=== PATIENT | male | born 1955 | race Caucasian/White ===

== ENCOUNTER 2020-05-16 04:54 | Inpatient (IN) | payer OTHER | END 2020-06-07 18:20 | DRG 246 | LOC: M.CL 04:54 → M.TBA-CV 09:18 → M.ICU 09:39 → M.2W 06-01 21:48 | PROVIDERS: ADMIT Internal Medicine | PROC: 027034Z Dilation of Coronary Artery, One Artery with Drug-eluting Intraluminal Device, Percutaneous Approach (ICD-10-PCS; principal; 2020-05-16) | PROC: 4A023N7 Measurement of Cardiac Sampling and Pressure, Left Heart, Percutaneous Approach (ICD-10-PCS; principal; 2020-05-16) | PROC: B211YZZ Fluoroscopy of Multiple Coronary Arteries using Other Contrast (ICD-10-PCS; 2020-05-16) | PROC: 5A1955Z Respiratory Ventilation, Greater than 96 Consecutive Hours (ICD-10-PCS; 2020-05-16) | PROC: 0BH17EZ Insertion of Endotracheal Airway into Trachea, Via Natural or Artificial Opening (ICD-10-PCS; 2020-05-16) | PROC: B548ZZA Ultrasonography of Superior Vena Cava, Guidance (ICD-10-PCS; 2020-05-17) | PROC: 02HV33Z Insertion of Infusion Device into Superior Vena Cava, Percutaneous Approach (ICD-10-PCS; 2020-05-17) | PROC: 5A12012 Performance of Cardiac Output, Single, Manual (ICD-10-PCS; 2020-05-26) | PROC: 5A09357 Assistance with Respiratory Ventilation, Less than 24 Consecutive Hours, Continuous Positive Airway Pressure (ICD-10-PCS; 2020-05-29) | PROC: 5A09357 Assistance with Respiratory Ventilation, Less than 24 Consecutive Hours, Continuous Positive Airway Pressure (ICD-10-PCS; 2020-06-03) | DX: I21.3 ST elevation (STEMI) myocardial infarction of unspecified site (principal); J69.0 Pneumonitis due to inhalation of food and vomit; E43 Unspecified severe protein-calorie malnutrition; I50.43 Acute on chronic combined systolic (congestive) and diastolic (congestive) heart failure; J96.01 Acute respiratory failure with hypoxia; I46.9 Cardiac arrest, cause unspecified; N17.9 Acute kidney failure, unspecified; R65.10 Systemic inflammatory response syndrome (SIRS) of non-infectious origin without acute organ dysfunction; I13.0 Hypertensive heart and chronic kidney disease with heart failure and stage 1 through stage 4 chronic kidney disease, or unspecified chronic kidney disease; E87.2 Acidosis; K56.7 Ileus, unspecified; I48.92 Unspecified atrial flutter; I47.2 Ventricular tachycardia; G93.40 Encephalopathy, unspecified; I25.110 Atherosclerotic heart disease of native coronary artery with unstable angina pectoris; D64.9 Anemia, unspecified; E78.5 Hyperlipidemia, unspecified; E11.22 Type 2 diabetes mellitus with diabetic chronic kidney disease; N18.3 Chronic kidney disease, stage 3 (moderate); E66.9 Obesity, unspecified; M10.9 Gout, unspecified; R33.9 Retention of urine, unspecified; E87.6 Hypokalemia; I25.5 Ischemic cardiomyopathy; E11.65 Type 2 diabetes mellitus with hyperglycemia; Z20.828 Contact with and (suspected) exposure to other viral communicable diseases; Z68.32 Body mass index [BMI] 32.0-32.9, adult; Z79.899 Other long term (current) drug therapy ==

== ENCOUNTER 2020-06-07 17:18 | Inpatient (IN) | payer OTHER ==
[~2020-06-07] VITALS: Ht 180.3 cm; Wt 98.2 kg
[~2020-06-07 17:18] MED LIST: ALLOPURINOL 10100 M3 PO; ASPIR 8181 MG PO; CARVEDILOL3.125 MG PO; EFFIENT10 MG PO; ENTRESTO 24 MG1 EACH PO; FLOMAX0.4 MG PO; IPRAT-ALBUT 0.5-3 ML INH; LASIX 40 MG TAB40 M1 PO; LIPITOR 40 MG T40 M1 PO; LISINOPRIL2.5 MG PO; NORVASC 2.5 MG2.5 M1 PO; PREDNISONE 20 M20 MG PO; PROBENECID500 MG PO; SEROQUEL 50 MG50 MG PO; SIMVASTATIN40 MG PO; SPIRONOLACTONE25 MG PO; TOPROL XL100 MG PO
[2020-06-07 19:00] VITALS: BP 110/73
--- NOTE | 2020-06-08 00:06 | NUR ---
ASSUMED CARE AT 1930. ADMITTED TO ROOM 328 AT 1820. ASSESSMENT COMPLETE. MCKAY DRAINING ILA URINE. RT GROIN BRUISED FROM CARDIAC CATH, BUT IS RESOLVING. TURNS SELF WELL. NO C/O PAIN. TAKES PILLS A FEW AT A TIME WITH WATER WITHOUT DIFF. PICC LINE TO STEPHON, ALL PORTS FLUSH WELL, ONLY PURPLE ONE HAS BLOOD RETURN AT THIS TIME. REHAB ROUTINE EXPLAINED TO PATIENT. BED ALARM ON. CALL LITE IN REACH. HOURLY ROUNDS CONTINUE.
[2020-06-08 04:29] LABS: HEMATOCRIT 36.7 % (42.0-52.0); HEMOGLOBIN 12.5 gm/dL (14.0-18.0); MCH 31.7 pg (26.0-34.0); MCHC 34.1 g/dL (28.0-37.0); MPV 8.7 fl. (7.2-11.1); RBC 3.94 mil/uL (4.50-6.00); WBC 7.3 thou/uL (4.0-11.0)
[2020-06-08 04:35] LABS: CALCIUM 7.9 mg/dL (8.5-10.1); CREATININE 1.2 mg/dL (0.6-1.3); POTASSIUM 3.7 mmol/L (3.5-5.1)
--- NOTE | 2020-06-08 05:11 | NUR ---
RESTED IN BED THROUGH THE NIGHT. MCKAY DRAINING ILA URINE. R.T. PUT O2 2L/NC ON AT HS. TURNS SELF. LABS DRAWN PER PICC. NO C/O PAIN. BED ALARM ON. CALL LITE IN REACH. HOURLY ROUNDS CONTINUE.
[2020-06-08 08:00] VITALS: BP 114/71
--- NOTE | 2020-06-08 12:32 | NUR ---
Nutrition: Pt admitted to rehab with cardiac debility. Wt: 211#. Albumin 2.1 Physician indicated severe PCM - defer DX. Prealbumin 22.5, BG 117. Pt is eating, per RN. Chopped, heart healthy diet. Meds noted. H/o CAD, DM, gout, HTN. No nutrition interventions needed today. Low risk.
--- NOTE | 2020-06-08 16:55 | NUR ---
Pt known to SW from acute care stay. Pt now on inpt rehab unit. Pt lives at home alone. Pt has sisters who are supportive but are not able to live with pt or provide any assistance at home at dc. SW to continue to follow to assist with safe dc planning.
--- NOTE | 2020-06-08 17:20 | NUR ---
AM ASSESSMENT AND VITAL SIGNS COMPLETED DOCUMENTED. PT WORKED WITH ALL THERAPIES, C/O FATIGUE AFTER MORNING SESSIONS WERE DONE. PT DENIED PAIN THIS SHIFT. O2 SAT MONITORED DURING THERAPY AND PT PT MAINTAINED A SATURATION OF 93-95% SO O2 IS NOW ON STANDBY. FC TO DD WITH STRAW COLORED URINE OUTPUT. PT HAD A BM TODAY AND WAS ABLE TO DO ROCÍO CARE AND MANAGE CLOTHING WITH MIN ASSIST. FALL PRECAUTIONS AND HOURLY ROUNDING CONTINUE.
[2020-06-08 19:45] VITALS: BP 94/53
--- NOTE | 2020-06-08 19:45 | NUR ---
SITTING UP IN RECLINER WATCHING TV. COMPLAINS OF GENERALIZED DISCOMFORT FROM SITTING. TYLENOL GIVEN FOR PAIN. ASSISTED TO BED WITH ASSIST OF TWO, GAITBELT, WALKER. PATIENT NEEDED SOME LIFTING ASSISTANCE TO GET FROM THE SITTING TO STANDING POSITION. THEN WAS ABLE TO TAKE A FEW STEPS TO THE BED WITH CGA AND WALKER. MCKAY TO DEPENDENT DRAINAGE WITH CLEAR/YELLOW URINE. TOOK MEDICATIONS WHOLE WITH WATER. CALL LIGHT WITHIN REACH.
--- NOTE | 2020-06-09 06:09 | NUR ---
RESTED QUIETLY. NO FURTHER COMPLAINT OF PAIN. HOURLY ROUNDING IN PROGRESS.
[2020-06-09 08:00] VITALS: BP 112/72
--- NOTE | 2020-06-09 16:49 | NUR ---
AM ASSESSMENT AND VITAL SIGNS COMPLETED DOCUMENTED. PT HAS BEEN ALERT, ORIENTED AND PLEASANT. PT IS VERY MOTIVATED TO REGAIN HIS BASELINE STRENGTH AND WORKS HARD DURING ALL THERAPIES. NO C/O PAIN THIS SHIFT. FC TO DD WITH CLEAR YELLOW URINE OUTPUT. NO C/O PAIN OR DISCOMFORT THIS SHIFT. FALL PRECAUTIONS AND HOURLY ROUNDING CONTINUE.
[2020-06-09 19:41] VITALS: BP 99/64
--- NOTE | 2020-06-10 06:07 | NUR ---
PT SLEPT WELL OVERNIGHT AFTER RECEIVING TYLENOL AT HS FOR GENERALIZED DISCOMFORT WITH GOOD RESULT. STEPHON PICC SL. MCKAY DRAINING YELLOW URINE. PT TURNS INDEP IN BED OVERNIGHT. UP WITH GB WALKER TO BSC, NO BM THIS SHIFT. NO LABS THIS MORNING. AOX4, ABLE TO USE CALL LITE AND MAKE NEEDS KNOWN. ROOM AIR. CALL LITE IN EASY REACH, BED ALARM ON FOR SAFETY OVERNIGHT.
[2020-06-10 08:00] VITALS: BP 108/71
[2020-06-10 11:50] VITALS: BP 94/63
[2020-06-10 11:55] VITALS: BP 85/60
[2020-06-10 12:00] VITALS: BP 80/55
[2020-06-10 12:10] VITALS: BP 94/54
--- NOTE | 2020-06-10 17:08 | NUR ---
MAILE and Dr Hernandez met with pt yesterday to review team conference summary and plan for pt to remain on inpt rehab unit with team to reassess pt length of stay during team conference on next Saturday 06/16. SW to continue to follow to assist with safe dc planning.
--- NOTE | 2020-06-10 17:10 | NUR ---
ASSUMMED CARE OF PT AT 0730, PT ALERT AND ORIENTED, TRANSFERS WITH ASSIST OF 1 GB WALKER, TAKING FOOD AND FLUIDS WELL, C/O BACK PAIN THIS AM, MEDICATED X 1 WITH GD RELIEF, STEPHON TRIPLE LUMEN INTACT, UP IN CHAIR MUCH OF SHIFT, AMB TO BATHROOM, PARTICIPATED IN ALL THERAPIES HOURLY ROUNDING COMPLETED, ASSESSMENT COMPLETE, WILL CONTINUE TO MONITOR.
[2020-06-10 20:00] VITALS: BP 113/71
[2020-06-11 06:00] VITALS: BP 120/74
--- NOTE | 2020-06-11 06:32 | NUR ---
PT ALERT AND ORIENTED. VSS ON RA. MEDS GIVEN PER EMAR. PT SLEPT WELL THIS SHIFT. PT DENIES PAIN. NO BM NOTED THIS SHIFT. FALL PRECAUTION IN PLACE. CALL LIGHT WITHIN REACH. HOURLY ROUNDINGS MADE. WILL CONTINUE TO MONITOR.
[2020-06-11 08:00] VITALS: BP 110/69
--- NOTE | 2020-06-11 15:47 | NUR ---
ASSUMMED CARE OF PT AT 0730, PT ALERT AND ORIENTED, PT TRANSFERS WITH SBA, GB WALKER, PT TAKING FOOD AND FLUIDS WELL, C/O BACK PAIN MEDICATED X1 WITH TYLENOL WITH GD RELIEF, MCKAY HAD 1200 CC OUT AND DISCONTINUED AT 1440, PT ENCOURAGED TO DRINK FLUIDS AND VOIDING TRIAL EXPLAINED TO PT, TRIPLE LUMEN PICC DISCONTINUED IN STEPHON, PT TAKING FOOD AND FLUIDS WELL, PARTICIPATED IN ALL THERAPIES, HOURLY ROUNDING COMPLETED, ASSESSMENT COMPLETE, WILL CONTINUE TO MONITOR.
[2020-06-11 20:13] VITALS: BP 96/57
--- NOTE | 2020-06-11 20:50 | NUR ---
SITTING UP IN BED WATCHING TV. DENIES NEED FOR PAIN MEDICATION. CALL LIGHT WITHIN REACH.
--- NOTE | 2020-06-12 06:43 | NUR ---
PATIENT SAT UP ON SIDE OF THE BED SEVERAL TIMES THROUGHOUT THE NIGHT AND VOIDED 275ML TO 350ML AT A TIME. BLADDER SCAN LAST NIGHT SHOWED A RESIDUAL OF ZERO. THIS MORNING BLADDER SCAN SHOWED A RESIDUAL OF 696ML. PATIENT DENIES BLADDER DISCOMFORT. HOURLY ROUNDING IN PROGRESS.
[2020-06-12 08:00] VITALS: BP 118/62
--- NOTE | 2020-06-12 18:41 | NUR ---
AM ASSESSMENT AND VITAL SIGNS COMPLETED DOCUMENTED. PT HAS BEEN PLEASANT AND COOPERATIVE, CONTINUES TO PROGRESS TOWARDS DISCHARGE GOALS. PT HAS BEEN ABLE TO URINATE BUT DOESN'T COMPLETELY EMPTY HIS BLADDER. PT DENIES FEELING BLADDER DISTENTION OR DISCOMFORT. FALL PRECAUTIONS AND HOURLY ROUNDING CONTINUE.
[2020-06-12 20:15] VITALS: BP 104/63
--- NOTE | 2020-06-12 20:15 | NUR ---
AWAKENED FOR REASSESSMENT AND MEDICATION PASS. DENIES DISCOMFORT. DENIES NEEDS. CALL LIGHT WITHIN REACH.
--- NOTE | 2020-06-13 05:57 | NUR ---
ONLY USED URINAL X ONE DURING THE NIGHT. VOIDED 400ML. BLADDER SCAN SHOWED A RESIDUAL OF 1058ML. STRAIGHT CATH WAS DONE AND 1050ML OF DARK/YELLOW URINE OBTAINED. HOURLY ROUNDING IN PROGRESS.
[2020-06-13 08:00] VITALS: BP 106/76
--- NOTE | 2020-06-13 18:11 | NUR ---
AM ASSESSMENT AND VITAL SIGNS COMPLETED DOCUMENTED. PT IS VOIDING 350-400ML EACH TIME TODAY. PT VERY PLEASANT AND COOPERATIVE. PT HASN'T NEEDED ANY PRN PAIN MEDICATIONS THIS SHIFT. PT ENCOURAGED TO USE THE IS FREQUENTLY. FALL PRECAUTIONS AND HOURLY ROUNDING CONTINUE.
[2020-06-13 20:25] VITALS: BP 101/65
--- NOTE | 2020-06-13 20:25 | NUR ---
AWAKENED FOR REASSESSMENT AND MEDICATION PASS. TYELNOL GIVEN FOR COMPLAINT OF BACK PAIN RATED "4". CALL LIGHT WITHIN REACH.
[2020-06-14 04:35] LABS: HEMATOCRIT 33.4 % (42.0-52.0); HEMOGLOBIN 11.3 gm/dL (14.0-18.0); MCH 31.8 pg (26.0-34.0); MCHC 33.9 g/dL (28.0-37.0); MCV 93.7 fL (80.0-100.0); NUCLEATED RBCS 0 /100WBC; PLATELET COUNT* 101 thou/uL (150-400); RBC 3.57 mil/uL (4.50-6.00); WBC 3.3 thou/uL (4.0-11.0)
[2020-06-14 04:44] LABS: CALCIUM 8.1 mg/dL (8.5-10.1); CREATININE 1.3 mg/dL (0.6-1.3); POTASSIUM 4.2 mmol/L (3.5-5.1)
--- NOTE | 2020-06-14 05:41 | NUR ---
NO FURTHER COMPLAINT OF PAIN. SAT UP ON SIDE OF THE BED X TWO DURING THE NIGHT TO VOID PER URINAL. 425 ML THE FIRST TIME AND 500ML THE SECOND TIME. HOURLY ROUNDING IN PROGRESS.
[2020-06-14 05:44] LABS: ABSOLUTE EOSINOPHILS 0.2 thou/uL (0.0-0.7); ABSOLUTE LYMPHOCYTES 1.7 thou/uL (0.8-5.3); ABSOLUTE MONOCYTES 0.3 thou/uL (0.0-1.2); ABSOLUTE NEUTROPHILS 1.2 thou/uL (1.6-8.1); PLATELET ESTIMATE DECREASED
[2020-06-14 05:45] LABS: ANISOCYTOSIS 1+; POIKILOCYTOSIS 1+
[2020-06-14 07:30] VITALS: BP 108/65
--- NOTE | 2020-06-14 14:36 | NUR ---
ASSUMED CARE AT 0730. ALERT ORIENTED PLEASANT COOPERATIVE. HX OF CARDIOPULMONARY ARREST AND CT. TRANSFERS WITH SBA G BELT WALKER AMBULATES TO TOILET FOR VOIDS AND BM THIS A.M. USING CALL LIGHT APPROPRIATELY FOR ASSISTANCE. FEEDS SELF APPETITE GOOD TAKES MEDS WITHOUT DIFFICULTY. PARTICIPATING IN THERAPIES THROUGHOUT THE DAY. UP IN RECLINER AT BEDSIDE WHEN NOT IN THERAPIES. MEDICATED WITH PRN TYLENOL FOR BACK PAIN WITH SOME RELIEF STATED PER PT.
[2020-06-14 19:50] VITALS: BP 107/64
[2020-06-15 08:04] VITALS: BP 113/77
[2020-06-15 14:26] VITALS: BP 95/63
--- NOTE | 2020-06-15 14:39 | NUR ---
ASSUMED CARE AT 0730. ALERT ORIENTED PLEASANT COOPERATIVE. HX OF TX AND STENTS ALSO CARDIAC ARREST WITH HX OF CPR. TRANSFERS WITH SBA G BELT WALKER AND AMBULATES TO BR TO VOID AND HAS USED URINAL AT TIMES. MEDICATED WITH TYLENOL 2 TABS PO FOR C/O BACK PAIN RATES A 3 ON PAIN SCALE BEFORE THERAPY. PT. PARTICIPATING IN THERAPIES O.T. AFTERNOON SESSION STATED HAVING FELT FAINT AFTER SEVERAL EXERCISES WITH O.T. BP AT 1426 WAS 95/63 SITTING P 70 DENIES PAIN OR DISCOMFORT.
[2020-06-15 15:00] VITALS: BP 117/69
[2020-06-15 15:01] VITALS: BP 98/78
[2020-06-15 20:35] VITALS: BP 112/64
--- NOTE | 2020-06-15 20:35 | NUR ---
RESTING QUIETLY IN BED. TYLENOL GIVEN FOR COMPLAINT OF BACK PAIN RATED "5". SITS ON SIDE OF BED TO VOID PER URINAL. CALL LIGHT WIHIN REACH.
--- NOTE | 2020-06-16 04:57 | NUR ---
USED URINAL X 2 DURING THE NIGHT. HOURLY ROUNDING IN PROGRESS.
[2020-06-16 08:02] VITALS: BP 95/64
--- NOTE | 2020-06-16 14:00 | NUR ---
MAILE and Dr Hernandez met with pt to review team conference summary and plan for pt to trial mod I in room on and dc home on Sunday. Pt open to HH services at dc and in need of RW ordered at dc. SW to follow to discuss options with pt and arrange for pt dc Monday 06/18.
--- NOTE | 2020-06-16 16:19 | NUR ---
AM ASSESSMENT AND VITAL SIGNS COMPLETED DOCUMENTED. PT HAS WORKED WITH ALL THERAPIES TODAY AND CONTINUES TO PROGRESS. PT MAY BE MOD I IN HIS ROOM TOMORROW PENDING THERAPY NOTES FROM TODAY. PT IS AMBULATORY WITH A WALKER BUT FATIGUES QUICKLY AND WILL PROBABLY NEED CARDIAC REHAB AT DISCHARGE. FALL PRECAUTIONS AND HOURLY ROUNDING CONTINUE.
--- NOTE | 2020-06-16 16:29 | NUR ---
PT WILL BE FITTED FOR A LIFE VEST PRIOR TO DISCHARGE.
[2020-06-16 20:05] VITALS: BP 127/64
--- NOTE | 2020-06-16 20:05 | NUR ---
RESTING QUIETLY IN BED. DENIES DISCOMFORT. CALL LIGHT AND URINAL WITHIN REACH.
--- NOTE | 2020-06-17 06:19 | NUR ---
SAT UP ON SIDE OF THE BED X 2 DURING THE NIGHT TO VOID PER URINAL. HOURLY ROUNDING IN PROGRESS.
[2020-06-17 08:00] VITALS: BP 118/55
[2020-06-17 20:00] VITALS: BP 112/67
--- NOTE | 2020-06-18 06:30 | NUR ---
ASSUMED PT CARE AT 1930. HX OF STEMI WITH CARDIOGENIC STOCK S/P CODE BLUE PULSELESS V TACH. PT ALERT AND ORIENTED X4, POLITE AND COOPERATIVE WITH CARES. PT MOD I IN ROOM. UP TWICE TO BATHROOM TO VOID, USED URINAL ONCE. DENIED PAIN OR NEEDS. WEARING ANTHROPOLOGICAL LINGUIST. TO BE FITTED FOR LIFE VEST PRIOR TO DISCHARGE WHICH IS ANTICIPATED TODAY. USES CALL LIGHT APPROPRIATELY. CALL LIGHT IN REACH. HOURLY ROUNDING IN PROGRESS, WILL CONTINUE TO MONITOR.
[2020-06-18 09:00] VITALS: BP 95/62
[2020-06-18 13:37] VITALS: BP 95/62
[2020-06-18 14:50] VITALS: BP 95/62
--- NOTE | 2020-06-18 14:52 | NUR ---
Pt to dc home alone today with HH services to follow. And with Rolling walker. SW discussed with pt; SW arranged with pt preferences through [facility] approved for rolling walker and with [facility]. ph [phone]
[2020-06-18] MEDS ORDERED: SPIRONOLACTONE25 MG PO (15:57)
[2020-06-18] MEDS ORDERED: NITROGLYCERIN0.4 MG SUBLING (16:00)
[2020-06-18] MEDS ORDERED: TOPROL XL25 MG PO (16:00)
--- NOTE | 2020-06-18 18:49 | NUR ---
PATIENT VERBALIZED UNDERSTANDING OF DISCHARGE INSTRUCTIONS. DENIES NEED FOR PAIN MEDICATION. UP ON OWN/MOD I IN ROOM. WEARING CARDIAC VEST WITHOUT ANY DIFFICULTY. PATIENT HAD BEEN INSTRUCTED ON CARDIAC VEST AND STATED NO NEW QUESTIONS. MEDICATIONS ORDERS FAXED TO PHARMACY OF CHOICE. CARDIODOGY SAW PATIENT PRIOR TO D/C AND NEW ORDERS NOTED. PATIENT INSTRUCTED TO CHECK B/P 2-3 TIMES A DAY UNTIL DR CASILLAS.
== END 2020-06-18 18:00 | disposition home health service (06) | DRG 947 ==
LOC: M.REH 17:18
PROVIDERS: Nurse Practitioner Family; ADMIT Physical Medicine & Rehabilitation; ATTEND Physical Medicine & Rehabilitation
PROC: 05HY33Z Insertion of Infusion Device into Upper Vein, Percutaneous Approach (ICD-10-PCS; principal; 2020-06-07)
DX: R53.81 Other malaise (principal); I21.3 ST elevation (STEMI) myocardial infarction of unspecified site; J69.0 Pneumonitis due to inhalation of food and vomit; E43 Unspecified severe protein-calorie malnutrition; I50.41 Acute combined systolic (congestive) and diastolic (congestive) heart failure; J96.01 Acute respiratory failure with hypoxia; I46.9 Cardiac arrest, cause unspecified; N17.9 Acute kidney failure, unspecified; R65.10 Systemic inflammatory response syndrome (SIRS) of non-infectious origin without acute organ dysfunction; I13.0 Hypertensive heart and chronic kidney disease with heart failure and stage 1 through stage 4 chronic kidney disease, or unspecified chronic kidney disease; K56.7 Ileus, unspecified; I47.2 Ventricular tachycardia; I48.92 Unspecified atrial flutter; I25.10 Atherosclerotic heart disease of native coronary artery without angina pectoris; E78.5 Hyperlipidemia, unspecified; E11.22 Type 2 diabetes mellitus with diabetic chronic kidney disease; M10.9 Gout, unspecified; E66.9 Obesity, unspecified; Z68.29 Body mass index [BMI] 29.0-29.9, adult; R33.9 Retention of urine, unspecified; Z82.49 Family history of ischemic heart disease and other diseases of the circulatory system; N18.3 Chronic kidney disease, stage 3 (moderate); Z79.82 Long term (current) use of aspirin; Z79.899 Other long term (current) drug therapy

== ENCOUNTER → 2020-08-09 | Outpatient (CLI) | payer OTHER ==
[~2020-08-09] MED LIST changes: +NITROGLYCERIN0.4 MG SUBLING; +TOPROL XL25 MG PO
[2020-08-09 08:25] LABS: ALBUMIN 3.5 g/dL (3.4-5.0); ALKALINE PHOSPHATASE 164 U/L (46-116); ANION GAP 11 mmol/L (7-16); BUN 13 mg/dL (7-18); CALCIUM 8.7 mg/dL (8.5-10.1); CHLORIDE 106 mmol/L (98-107); CHOLESTEROL 139 mg/dL (<200); CO2 25 mmol/L (21-32); CREATININE 1.3 mg/dL (0.6-1.3); GLUCOSE 108 mg/dL (70-99); HDL CHOLESTEROL 44 mg/dL (>40); LDL CHOLESTEROL 52 mg/dL (<100); MAGNESIUM 1.9 mg/dL (1.8-2.4); POTASSIUM 4.3 mmol/L (3.5-5.1); SGOT 24 U/L (15-37); SGPT 24 U/L (30-65); SODIUM 142 mmol/L (136-145); TC:HDL 3.2 Ratio (Not establshd); TOTAL BILIRUBIN 1.5 mg/dL (<0.1-1.0); TOTAL PROTEIN 6.3 g/dL (6.4-8.2); TRIGLYCERIDE 216 mg/dL (<150); VLDL 43 mg/dL (<40)
[2020-08-09 08:29] LABS: SERUM ASSESSMENT Clear
== END ==
LOC: M.LAB 06:56
PROVIDERS: ATTEND Nurse Practitioner
DX: E78.5 Hyperlipidemia, unspecified (principal); R00.2 Palpitations

== ENCOUNTER → 2020-09-20 | Outpatient (CLI) | payer OTHER ==
--- NOTE | 2020-09-20 12:35 | 2DMMODE ---
[place] [id number] 2 D/M-MODE ECHOCARDIOGRAM Name: CARLOS BRANCH Room: [facility]#: [id number] Admission: 09/20/20 Attend Phys: Yoel Davis, Discharge: Date of : 55 Date of Service: 09/20/20 1235 Report #: [id number] THIS REPORT FOR: cc: Keshav Calixto MD, Greg L. MD Blick, David R. MD [facility] ~ APPROVED REPORT Study performed: 09/20/2020 07:53:35 EXAM: Comprehensive 2D, Doppler, and color-flow Echocardiogram Patient Location: Out-Patient BSA: 2.23 HR: 60 bpm BP: 120/60 mmHg Other Information Study Quality: Good Indications Cardiomyopathy 2D Dimensions IVSd: 14.00 (7-11mm) LVOT Diam: 20.00 (18-24mm) LVDd: 53.63 mm PWd: 12.67 (7-11mm) Ascending Ao: 34.42 (22-36mm) LVDs: 44.41 (25-40mm) Aortic Root: 29.52 mm Volumes Left Atrial Volume (Systole) LA ESV Index: 16.80 mL/m2 Aortic Valve AoV Peak Donell.: 1.08 m/s AO Peak Gr.: 4.63 mmHg LVOT Max P.58 mmHg AO Mean Gr.: 2.30 mmHg LVOT Mean P.70 mmHg LVOT Max V: 0.95 m/s AO V2 VTI: 17.46 cm LVOT Mean V: 0.59 m/s LIS (VTI): 2.94 cm2 LVOT V1 VTI: 16.36 cm Mitral Valve E/A Ratio: 0.34 [place] [address] 2 D/M-MODE ECHOCARDIOGRAM Name: CARLOS BRANCH Room: [facility]#: [id number] Admission: 09/20/20 Attend Phys: Yoel Davis, Discharge: Date of : 55 Date of Service: 09/20/20 1235 Report #: [id number] MV Decel. Time: 333.58 ms MV E Max Donell.: 0.25 m/s MV PHT: 96.74 ms MVA (PHT): 2.27 cm2 TDI E/Lateral E': 4.17 E/Medial E': 3.57 Medial E' Donell.: 0.07 m/s Lateral E' Donell.: 0.06 m/s Pulmonary Valve PV Peak Donell.: 0.99 m/s PV Peak Gr.: 3.92 mmHg Left Ventricle Left ventricle is mildly dilated. akinesis noted of the mid and distal anteroseptal wall and apex Mild concentric left ventricular hypertrophy. Left ventricular systolic function is severely decreased. LVEF is 20-25%. Grade I - abnormal relaxation pattern. Right Ventricle The right ventricle is normal size. The right ventricular systolic function is normal. Atria The left atrium size is normal. The right atrium size is normal. Aortic Valve The Aortic valve is sclerotic. No aortic regurgitation is present. There is no aortic valvular stenosis. Mitral Valve The mitral valve is normal in structure. Mild mitral regurgitation. No evidence of mitral valve stenosis. Tricuspid Valve The tricuspid valve is normal in structure. There is trace tricuspid valve regurgitation noted. Pulmonic Valve The pulmonary valve is normal in structure. There is trace pulmonic valvular regurgitation. Great Vessels The aortic root is normal in size. IVC [place] [address] 2 D/M-MODE ECHOCARDIOGRAM Name: [facility]CARLOS [id number] Admission: 09/20/20 Attend Phys: Yoel Davis, Discharge: Date of : 55 Date of Service: 09/20/20 1235 Report #: [id number] collapses >50% with inspiration. Pericardium There is no pericardial effusion. <Conclusion> Mild concentric left ventricular hypertrophy. LVEF is 20-25%. Mild mitral regurgitation. The Aortic valve is sclerotic. <ELECTRONICALLY SIGNED> By: Arthur Mendiola MD, FACC 09/20/20 1235 1235 1235 Arthur Mendiola MD, FAC /INF
== END ==
LOC: M.CRD 07:32
PROVIDERS: ATTEND Internal Medicine Cardiovascular Disease
DX: I07.1 Rheumatic tricuspid insufficiency (principal); I25.10 Atherosclerotic heart disease of native coronary artery without angina pectoris; I25.5 Ischemic cardiomyopathy

== ENCOUNTER → 2020-12-07 | Outpatient (CLI) | payer OTHER ==
--- NOTE | 2020-12-07 14:05 | 2DMMODE ---
[place] [address] 2 D/M-MODE ECHOCARDIOGRAM Name: CARLOS BRANCH Room: [facility]#: [id number] Admission: 12/07/20 Attend Phys: Yoel Davis, Discharge: Date of : 55 Date of Service: 12/07/20 1405 Report #: [id number] THIS REPORT FOR: cc: Keshav Calixto MD, Greg L. MD Liston, Michael J. MD [facility] ~ APPROVED REPORT Study performed: 12/07/2020 08:53:28 EXAM: Comprehensive 2D, Doppler, and color-flow Echocardiogram Patient Location: Out-Patient BSA: 2.21 HR: 60 bpm BP: 120/80 mmHg Other Information Study Quality: Good Indications CAD Cardiomyopathy 2D Dimensions IVSd: 11.57 (7-11mm) LVOT Diam: 20.69 (18-24mm) LVDd: 32.58 mm PWd: 11.10 (7-11mm) Ascending Ao: 31.76 (22-36mm) LVDs: 28.60 (25-40mm) Aortic Root: 28.71 mm Volumes Left Atrial Volume (Systole) LA ESV Index: 16.20 mL/m2 Aortic Valve AoV Peak Donell.: 1.17 m/s AO Peak Gr.: 5.51 mmHg LVOT Max P.85 mmHg AO Mean Gr.: 3.38 mmHg LVOT Mean P.79 mmHg LVOT Max V: 0.98 m/s AO V2 VTI: 19.66 cm LVOT Mean V: 0.61 m/s LIS (VTI): 3.48 cm2 LVOT V1 VTI: 20.32 [place] [address] 2 D/M-MODE ECHOCARDIOGRAM Name: CARLOS BRANCH Room: [facility]#: [id number] Admission: 12/07/20 Attend Phys: Yoel Davis, Discharge: Date of : 55 Date of Service: 12/07/20 1405 Report #: [id number] E/A Ratio: 0.61 MV Decel. Time: 325.29 ms MV E Max Doenll.: 0.44 m/s MV PHT: 94.34 ms MVA (PHT): 2.33 cm2 TDI E/Lateral E': 4.89 E/Medial E': 7.33 Medial E' Donell.: 0.06 m/s Lateral E' Donell.: 0.09 m/s Pulmonary Valve PV Peak Donell.: 0.84 m/s PV Peak Gr.: 2.84 mmHg Tricuspid Valve RAP Estimate: 5.00 mmHg TR Peak Gr.: 18.93 mmHg RVSP: 23.93 mmHg PA Pressure: 23.93 mmHg Left Ventricle Left ventricle is mildly dilated. There is significant hypokinesis along the anterior apical and inferior caro. There is normal left ventricular wall thickness. Left ventricular ejection fraction is severely decreased. LVEF is 25-30%. Grade I - abnormal relaxation pattern. Right Ventricle The right ventricle is normal size. The right ventricular systolic function is normal. Atria Left atrium is mildly dilated. The right atrium size is normal. Aortic Valve The aortic valve is normal in structure. Trace aortic regurgitation. There is no aortic valvular stenosis. Mitral Valve The mitral valve is normal in structure. Mild mitral regurgitation. No evidence of mitral valve stenosis. Tricuspid Valve The tricuspid valve is normal in structure. Mild tricuspid regurgitation. [place] [address] 2 D/M-MODE ECHOCARDIOGRAM Name: CARLOS BRANCH Room: [facility]#: [id number] Admission: 12/07/20 Attend Phys: Yoel Davis, Discharge: Date of : 55 Date of Service: 12/07/20 1405 Report #: [id number] Pulmonic Valve The pulmonary valve is normal in structure. There is no pulmonic valvular regurgitation. Great Vessels The aortic root is normal in size. IVC is normal in size and collapses >50% with inspiration. Pericardium There is no pericardial effusion. <Conclusion> Left ventricle is mildly dilated. There is normal left ventricular wall thickness. Left ventricular ejection fraction is severely decreased. LVEF is 25-30%. Grade I - abnormal relaxation pattern. There is significant hypokinesis along the anterior apical and inferior caro. Left atrium is mildly dilated. Mild mitral regurgitation. Mild tricuspid regurgitation. No pulmonary hypertension. IVC is normal in size and collapses >50% with inspiration. <ELECTRONICALLY SIGNED> By: Yoel Davis MD, [facility] 12/07/20 1405 1405 1405 Yoel Davis MD, FACC /INF
== END ==
LOC: M.CRD 08:54
PROVIDERS: ATTEND Internal Medicine Cardiovascular Disease
DX: I07.1 Rheumatic tricuspid insufficiency (principal); I25.5 Ischemic cardiomyopathy; I25.10 Atherosclerotic heart disease of native coronary artery without angina pectoris; Z95.810 Presence of automatic (implantable) cardiac defibrillator

== ENCOUNTER → 2021-01-18 | Outpatient (CLI) | payer OTHER ==
--- NOTE | 2021-01-18 09:58 | 2DMMODE ---
[place] [address] 2 D/M-MODE ECHOCARDIOGRAM Name: CARLOS BRANCH Room: [facility]#: [id number] Admission: 01/18/21 Attend Phys: Yoel Davis, Discharge: Date of : 55 Date of Service: 01/18/21 0958 Report #: [id number] THIS REPORT FOR: cc: Keshav Calixto MD, Greg L. MD Liston, Michael J. MD [facility] ~ APPROVED REPORT Study performed: 01/18/2021 07:51:56 EXAM: Limited 2D Echocardiogram Patient Location: Out-Patient BSA: 2.25 HR: 58 bpm BP: 137/72 mmHg Other Information Study Quality: Good Indications Ischemic Cardiomyopathy 2D Dimensions IVSd: 11.76 (7-11mm) LVDd: 43.76 mm PWd: 10.92 (7-11mm) LVDs: 38.24 (25-40mm) Aortic Root: 29.71 mm Left Ventricle The left ventricle is normal size. There is akinesis of the mid to distal septum anteroseptal wall and apex. There is normal left ventricular wall thickness. Left ventricular ejection fraction is moderate to severely decreased. LVEF is 30-35%. Aortic Valve The Aortic valve is mildly sclerotic. Mitral Valve The mitral valve is normal in structure. Tricuspid Valve The tricuspid valve is [place] [address] 2 D/M-MODE ECHOCARDIOGRAM Name: CARLOS BRANCH Room: [facility]#: [id number] Admission: 01/18/21 Attend Phys: Yoel Davis, Discharge: Date of : 55 Date of Service: 01/18/2158 Report #: [id number] Pulmonic Valve Great Vessels The aortic root is normal in size. Pericardium There is no pericardial effusion. <Conclusion> The left ventricle is normal size. There is normal left ventricular wall thickness. Left ventricular ejection fraction is moderate to severely decreased. LVEF is 30-35%. There is akinesis of the mid to distal septum anteroseptal wall and apex. The Aortic valve is mildly sclerotic. <ELECTRONICALLY SIGNED> By: Yoel Davis MD, FACC 01/18/2158 7 Yoel Davis MD, FACC /INF
== END ==
LOC: M.CRD 07:40
PROVIDERS: ATTEND Internal Medicine Cardiovascular Disease
DX: I35.0 Nonrheumatic aortic (valve) stenosis (principal); I25.5 Ischemic cardiomyopathy; I25.810 Atherosclerosis of coronary artery bypass graft(s) without angina pectoris

== ENCOUNTER → 2021-01-27 | Outpatient (CLI) | payer OTHER ==
[~2021-01-27] VITALS: Ht 182.9 cm; Wt 99.8 kg
[2021-01-27 09:52] VITALS: BP 137/67
[2021-01-27 09:56] LABS: HEMATOCRIT 43.3 % (42.0-52.0); HEMOGLOBIN 13.9 gm/dL (14.0-18.0); MCH 27.4 pg (26.0-34.0); MCHC 32.2 g/dL (28.0-37.0); MCV 85.2 fL (80.0-100.0); MPV 8.6 fl. (7.2-11.1); RBC 5.08 mil/uL (4.50-6.00); RDW-CV 15.7 % (10.5-14.5); WBC 6.6 thou/uL (4.0-11.0)
[2021-01-27 10:08] LABS: CALCIUM 9.4 mg/dL (8.5-10.1); CREATININE 1.3 mg/dL (0.6-1.3); POTASSIUM 4.3 mmol/L (3.5-5.1)
[2021-01-27 10:10] LABS: INR 1.1; PROTIME 11.6 Seconds (9.20-11.50)
[2021-01-27 10:13] LABS: ALBUMIN 3.7 g/dL (3.4-5.0); TOTAL BILIRUBIN 1.1 mg/dL (<0.1-1.0); TOTAL PROTEIN 7.3 g/dL (6.4-8.2)
[2021-01-27 14:10] VITALS: BP 126/67
[2021-01-27 14:28] VITALS: BP 143/79
[2021-01-27 14:43] VITALS: BP 141/72
[2021-01-27 14:59] VITALS: BP 143/59
--- NOTE | 2021-01-27 15:12 | EKG ---
[place] [address] ELECTROCARDIOGRAM REPORT Name: CARLOS BRANCH Room: [facility]#: [id number] Admission: 01/27/21 Attend Phys: Yoel Davis, Discharge: Date of : 55 Date of Service: 01/27/21 1023 Report #: [id number] THIS REPORT FOR: //name// [facility] Test Date: 2021-01-27 Test Time: 10:23:55 Pat Name: CARLOS BRANCH Department: Room: Gender: Landscape Contractor: : 1955 Requested By: Yoel Davis Order Number: [id number] Reading MD: Yoel Davis Measurements Intervals [place] Rate: 51 P: 17 SC: 181 QRS: -14 QRSD: 97 T: 98 QT: 468 QTc: 432 Interpretive Statements Sinus rhythm Anterior infarct, old Borderline repolarization abnormality Compared to ECG 05/21/2020 14:09:57 Myocardial infarct finding now present Atrial flutter no longer present Electronically Signed On 01-27-2021 15:12:31 INTERFACE DESIGNER by Yoel Davis [email or web address] <ELECTRONICALLY SIGNED> By: Yoel Davis MD, FACC 01/27/21 1512 1023 1023 Yoel Davis MD, [facility] /EPI
--- NOTE | 2021-02-01 12:47 | CARD ---
[address] [address] CARDIAC CATH REPORT Name: CARLOS BRANCH Room: [facility]#: [id number] Admission: 01/27/21 Attend Phys: Yoel Davis MD Discharge: Date of : 55 Report #: [id number] THIS REPORT FOR: cc: Keshav Calixto MD, Greg L. MD ~ Yoel Davis MD [facility] APPROVED REPORT Study performed: 01/27/2021 10:26:28 Patient Status: OP Room #: Event Personnel: Yoel Davis Draw Furnace Tender, Antoinette Saunders RN Certified Orthotist Practice Manager, Jian Truong TRAVEL REGISTERED NURSE ICU Monitor, Callie Martin RTR Scrub Exam: Insertion of Single Chamber ICD Indications: Ischemic cardiomyopathy. The patient is a 65 year-old male with a history of Cardiomyopathy (Ischemic). Patient Info Last EF%: 30 to 35% Date: 01/18/2021 NYHA Heart Class: II Reason for implant: Primary prevention Intraoperative Conscious Sedation Sedation start time: 1315 Case end Time: 1345 Fentanyl 50 mcg Versed 2 mg Implanted Devices: [employer] Acticor 7 VRT DX DF4 pro-MRI, model #971750, serial #[id number] single-chamber pacing ICD. [employer] Plexa ProMRI S DX 65/15, model #251137, serial #[id number] ICD pacing lead. Procedure After explaining the risks, benefits, and alternative options, informed consent was obtained from the patient. The patient was brought to the cardiac catheterization lab and the left chest and shoulder were prepped and draped in the usual fashion. During this case, Fluoroscopy and visipaque 20cc were used for imaging. IV conscious sedation was used throughout procedure with appropriate monitoring and was performed in the presence [place] [address] CARDIAC CATH REPORT Name: CARLOS BRANCH Room: [facility]#: [id number] Admission: 01/27/21 Attend Phys: Yoel Davis MD Discharge: Date of : 55 Report #: [id number] who was an independent trained observer other than the physician performing the procedure. After informed consent was obtained the patient was brought to the interventional radiology lab. The area of the left chest was prepped and draped in sterile fashion. Local anesthesia was achieved with 1% lidocaine. After initial incision was made a device pocket was formed over the left pectoralis muscle using electrocautery and blunt dissection. Next the left subclavian vein was accessed using a micropuncture kit. Ultimately a safety J guidewire was advanced to the area of the right atrium under fluoroscopic guidance. A tear-away introducer was advanced over the guidewire. The guidewire was removed and the pacing ICD lead advanced to a secure position within the right ventricular apex. The lead was secured. Thresholds were checked and deemed to be satisfactory. Sensing was checked and deemed to be satisfactory. After adequate slack was assured the lead was secured within the device pocket using the designated cuff and 0 silk suture. The device pocket was then flushed with antibiotic solution. Next the pacing ICD generator was attached to the ICD lead. The generator and redundant lead were then placed within the device pocket. The deep tissues were closed using interrupted stitches of 2-0 Vicryl. The skin incision was then closed with a single subcuticular stitch of 4-0 Vicryl. Several Steri-Strips were placed across the incision. A sterile Telfa dressing was then covered with Tegaderm. Patient tolerated the procedure well without complication. He was returned to the holding area in stable condition. Complications The patient tolerated the procedure well and there were no complications associated with the procedure. Findings Specimens Removed: No Estimated Blood Loss: < 5 ml R wave sensing 24.0 mV. RV threshold 0.4 V at 0.40 ms. Lead impedance 690 ohms. Conclusion 1. Ischemic cardiomyopathy. 2. Placement of a pacing ICD for primary prevention[place] [address] CARDIAC CATH REPORT Name: CARLOS BRANCH Room: [facility]#: [id number] Admission: 01/27/21 Attend Phys: Yoel Davis MD Discharge: Date of : 55 Report #: [id number] 1. Follow-up site check in 1 week. 2. Follow-up device interrogation in 1 to 2 months. <ELECTRONICALLY SIGNED> By: Yoel Davis MD, FACC 02/01/21 1247 [id number] 1247Michaejayden Davis MD, FACC /INF
== END ==
LOC: M.CL 09:25
PROVIDERS: ATTEND Internal Medicine Cardiovascular Disease
DX: I25.5 Ischemic cardiomyopathy (principal); I49.9 Cardiac arrhythmia, unspecified; I13.0 Hypertensive heart and chronic kidney disease with heart failure and stage 1 through stage 4 chronic kidney disease, or unspecified chronic kidney disease; E11.22 Type 2 diabetes mellitus with diabetic chronic kidney disease; N18.30 Chronic kidney disease, stage 3 unspecified; I50.20 Unspecified systolic (congestive) heart failure; I48.92 Unspecified atrial flutter; M10.9 Gout, unspecified; E66.09 Other obesity due to excess calories; Z98.890 Other specified postprocedural states; Z79.899 Other long term (current) drug therapy; Z87.891 Personal history of nicotine dependence; Z79.82 Long term (current) use of aspirin; Z68.29 Body mass index [BMI] 29.0-29.9, adult

== ENCOUNTER → 2022-01-02 | Outpatient (CLI) | payer OTHER ==
[2022-01-02 08:17] LABS: CALCIUM 8.9 mg/dL (8.5-10.1); CREATININE 1.3 mg/dL (0.6-1.3); POTASSIUM 4.8 mmol/L (3.5-5.1)
== END ==
LOC: M.LAB 07:45
PROVIDERS: ATTEND Nurse Practitioner
DX: I25.5 Ischemic cardiomyopathy (principal)